=== PATIENT | female | born 1995 | race Two or more races ===

== ENCOUNTER 2022-02-10 05:15 | Observation (INO) | payer BC, OTHER | END 2022-02-10 07:03 | disposition home or self-care (01) | LOC: LDRP 05:15 | PROVIDERS: ADMIT Obstetrics & Gynecology; ATTEND Obstetrics & Gynecology | DX: O36.63X0 Maternal care for excessive fetal growth, third trimester, not applicable or unspecified (principal); Z3A.39 39 weeks gestation of pregnancy | CPT/HCPCS: 59025; 76805; 76818; 81002; 94760; G0378 ==

== ENCOUNTER 2022-02-11 23:35 | Inpatient (IN) | payer BC ==
[~2022-02-11] VITALS: Ht 152.4 cm; Wt 74.4 kg
[2022-02-12] MEDS ORDERED: BUTORPHANOL TARTRATE 2 MG/1 ML VIAL IV PRN ×2 (01:30)
[2022-02-12] MEDS ORDERED: LIDOCAINE 2%HCL (LOCAL ANESTH.) INJ 10ml MDV IJ PRN (01:30)
[2022-02-12] MEDS ORDERED: PROMETHAZINE HCL 25 MG/ML 1ML IV PRN (01:30)
[2022-02-12] MEDS ORDERED: PHISODERM TOP SOLN 240ML BTL TOP PRN (01:30)
[2022-02-12] MEDS ORDERED: DERMOPLAST 60ML BOTTLE TOP PRN (01:30)
[2022-02-12] MEDS ORDERED: PENICILLIN G POT 5MIL/D5 50ML 50 ML IV ONE (01:30)
[2022-02-12] MEDS ORDERED: WITCH HAZEL-GLYCERIN PAD TOP PRN (01:30)
[2022-02-12] MEDS ORDERED: NS/OXYTOCIN 20UNITS 500 ML IV ONE ×2 (01:45→02:15)
[2022-02-12] MEDS ORDERED: METHYLERGONOVINE MALEATE 0.2 MG/ML AMP IM PRN (01:45)
[2022-02-12] MEDS: LACTATED RINGER'S 1,000 ML IV SCH ×3 (01:59→23:33)
[2022-02-12 02:12] LABS: Urine Bacteria NONE SEEN /hpf (None Seen); Urine Blood TRACE /uL (Negative); Urine Specific Gravity 1.003 (1.001-1.035); Urine WBC 5 /hpf (0 - 5)
[2022-02-12 02:14] LABS: Basophils # (auto) 0 10 ^3/uL (0-0.2); Basophils % (auto) 0.2 % (0.0-2.0); Eosinophils # (auto) 0.2 10 ^3/uL (0-0.8); Hematocrit 37.7 % (36.0-46.0); Hemoglobin 12.8 g/dL (12.2-16.2); Lymphocytes # (auto) 1.4 10 ^3/uL (0.4-5.4); Lymphocytes % (auto) 13.3 % (10.0-50.0); Mean Corpuscular Hemoglobin 32.3 pg (28.0-32.0); Mean Corpuscular Hgb Conc. 33.9 g/dL (32.0-36.0); Mean Corpuscular Volume 95.3 fL (80.0-100.0); Monocytes # (auto) 0.8 10 ^3/uL (0-1.3); Monocytes % (auto) 7.9 % (0.0-12.0); Neutrophils # (auto) 7.9 10 ^3/uL (1.6-8.6); Neutrophils % (auto) 76.6 % (37.0-80.0); Nucleated Red Blood Cells % 0.1 %; Red Blood Cells 3.96 10^6/uL (4.0-5.20); White Blood Cell 10.3 10^3/uL (4.4-10.8)
[2022-02-12 02:18] LABS: Alanine Aminotransferase 32 U/L (13-56); Albumin 2.8 g/dL (3.4-5.0); Anion Gap 11 (5-15); Aspartate Aminotransferase 23 U/L (15-37); Blood Urea Nitrogen 6 mg/dL (7-18); Calcium 8.6 mg/dL (8.5-10.1); Carbon Dioxide 19 mmol/L (21-32); Chloride 109 mmol/L (98-107); GFR African American 157 mL/min; GFR Non-African American 129 mL/min; Glucose 101 mg/dL (74-106); Potassium 3.7 mmol/L (3.5-5.1); Sodium 139 mmol/L (136-145)
[2022-02-12 02:20] LABS: Alkaline Phosphatase 227 U/L (45-117); Bilirubin, Total 0.6 mg/dL (0.2-1.0); Total Protein 6.9 g/dL (6.4-8.2)
[2022-02-12 02:22] LABS: Alcohol, Urine < 3.0 mg/dL (0-10); Amphetamine Screen, Urine NEGATIVE (NEGATIVE); Barbiturate Scree,Urine NEGATIVE (NEGATIVE); Benzodiazephine Screen, Urine NEGATIVE (NEGATIVE); Cannabinoid Screen, Urine NEGATIVE (NEGATIVE); Cocaine Screen, Urine NEGATIVE (NEGATIVE); Opiate Scree,Urine NEGATIVE (NEGATIVE); Phencyclidine Screen, Urine NEGATIVE (NEGATIVE)
[2022-02-12 02:42] LABS: INR 0.88 (0.9-1.15); Partial Thromboplastin Time 27.1 sec (24.6-33.4)
[2022-02-12] MEDS ORDERED: STERILE WATER 10 ML ONE (05:55)
[2022-02-12] MEDS ORDERED: PENICILLIN G POT 5MILLION UNIT VIAL ONE (05:55)
[2022-02-12] MEDS: PENICILLIN G POTASSIUM 2,500,000 UNITS in D5W 5% 50 ML IV SCH ×3 (06:07→15:19)
[2022-02-12] MEDS ORDERED: LACTATED RINGER'S 1,000 ML IV ONE (08:15)
[2022-02-12] MEDS ORDERED: ePHEDrine SULFATE 50 MG/ML AMP IV ONE (08:15)
[2022-02-12] MEDS ORDERED: ROPIVACAINE HCL 200 ML EPI SCH (08:15)
[2022-02-12] MEDS ORDERED: NALOXONE HCL 0.4 MG/ML VIAL IV ONE (08:15)
[2022-02-12] MEDS: ceFAZolin 2 GM in D5W 5% 100 ML IV SCH ×2 (10:51→19:00)
[2022-02-12] MEDS ORDERED: LIDOCAINE 1%-Mpf/Epinephrine 1:200,000 IJ ONE (15:15)
[2022-02-12] MEDS ORDERED: TERBUTALINE SULFATE 1 MG/ML 1ML VIAL SC PRN (18:45)
[2022-02-12] MEDS ORDERED: NS/OXYTOCIN 20UNITS 1,000 ML IV SCH (18:45)
[2022-02-12] MEDS ORDERED: ceFAZolin 1GM/50ML 0 ML IV ONE (19:58)
[2022-02-12] MEDS ORDERED: METHYLERGONOVINE MALEATE 0.2 MG/ML AMP IM ONE (22:43)
[2022-02-12] MEDS ORDERED: ACETAMINOPHEN 325 MG TAB PO PRN (23:30)
[2022-02-12] MEDS ORDERED: ONDANSETRON ODT 4 MG TAB PO PRN (23:30)
[2022-02-12 23:37] LABS: Basophils # (auto) 0 10 ^3/uL (0-0.2); Basophils % (auto) 0.1 % (0.0-2.0); Eosinophils # (auto) 0 10 ^3/uL (0-0.8); Hematocrit 27.5 % (36.0-46.0); Hemoglobin 9.4 g/dL (12.2-16.2); Lymphocytes # (auto) 0.9 10 ^3/uL (0.4-5.4); Lymphocytes % (auto) 5.9 % (10.0-50.0); Mean Corpuscular Hemoglobin 32.3 pg (28.0-32.0); Mean Corpuscular Hgb Conc. 34.2 g/dL (32.0-36.0); Mean Corpuscular Volume 94.7 fL (80.0-100.0); Monocytes # (auto) 1.1 10 ^3/uL (0-1.3); Neutrophils # (auto) 13.8 10 ^3/uL (1.6-8.6); Nucleated Red Blood Cells % 0.1 %; Red Blood Cells 2.91 10^6/uL (4.0-5.20); White Blood Cell 15.9 10^3/uL (4.4-10.8)
[2022-02-12] MEDS ORDERED: miSOPROStol 100 mcg TAB ONE (23:41)
[2022-02-12] MEDS ORDERED: miSOPROStol 100 mcg TAB SL PRN (23:45)
[2022-02-12] MEDS ORDERED: miSOPROStol 100 mcg TAB PR PRN (23:45)
[2022-02-13] VITALS (7 sets, daily range): BP systolic 89–100; BP diastolic 52–57
[2022-02-13 00:10] LABS: INR 0.98 (0.9-1.15); Partial Thromboplastin Time 31.1 sec (24.6-33.4)
[2022-02-13] MEDS: IBUPROFEN 600 MG TAB PO PRN ×2 (01:29→19:15)
[2022-02-13] MEDS: ceFAZolin 2 GM in D5W 5% 100 ML IV SCH (02:52)
[2022-02-13] MEDS ORDERED: SODIUM CHLORIDE 0.9% 1,000 ML IV ONE (04:30)
[2022-02-13 07:06] LABS: RPR Non Reactive (Non Reactive)
[2022-02-13 07:49] LABS: Basophils # (auto) 0 10 ^3/uL (0-0.2); Basophils % (auto) 0.2 % (0.0-2.0); Eosinophils # (auto) 0.1 10 ^3/uL (0-0.8); Lymphocytes # (auto) 2.1 10 ^3/uL (0.4-5.4); Monocytes % (auto) 7.2 % (0.0-12.0)
[2022-02-13 07:50] LABS: Eosinophils % (auto) 0.6 % (0.0-7.0); Hemoglobin 8.2 g/dL (12.2-16.2); Lymphocytes % (auto) 15.1 % (10.0-50.0); Mean Corpuscular Hemoglobin 32.3 pg (28.0-32.0); Mean Corpuscular Hgb Conc. 33.9 g/dL (32.0-36.0); Mean Corpuscular Volume 95.1 fL (80.0-100.0); Neutrophils # (auto) 10.7 10 ^3/uL (1.6-8.6); Neutrophils % (auto) 76.9 % (37.0-80.0); Red Blood Cells 2.53 10^6/uL (4.0-5.20); Red Cell Distribution Width 13.4 % (11.8-14.3); White Blood Cell 13.9 10^3/uL (4.4-10.8)
[2022-02-13] MEDS ORDERED: ceFAZolin 2 GM in D5W 5% 100 ML IV ONE (11:00)
[2022-02-13] MEDS ORDERED: DOCUSATE SOD 100 MG CAP PO SCH (22:00)
[2022-02-13] MEDS ORDERED: PREN-96 PO (22:32)
== END 2022-02-13 22:18 | disposition home or self-care (01) | DRG 806 ==
LOC: OBSVTOIN 23:35 → LDRP 23:35
PROVIDERS: ADMIT Obstetrics & Gynecology; ATTEND Obstetrics & Gynecology
PROC: 10E0XZZ Delivery of Products of Conception, External Approach (ICD-10-PCS; principal; 2022-02-12)
PROC: 0HQ9XZZ Repair Perineum Skin, External Approach (ICD-10-PCS; 2022-02-12)
PROC: 3E0R3BZ Introduction of Anesthetic Agent into Spinal Canal, Percutaneous Approach (ICD-10-PCS; 2022-02-12)
PROC: 00HU33Z Insertion of Infusion Device into Spinal Canal, Percutaneous Approach (ICD-10-PCS; 2022-02-12)
DX: O77.0 Labor and delivery complicated by meconium in amniotic fluid (principal); O75.2 Pyrexia during labor, not elsewhere classified; Z37.0 Single live birth; O70.0 First degree perineal laceration during delivery; O99.824 Streptococcus B carrier state complicating childbirth; Z20.822 Contact with and (suspected) exposure to COVID-19; Z3A.39 39 weeks gestation of pregnancy
CPT/HCPCS: 36415; 59025; 62282; 76818; 80053; 80307; 81001; 84112; 85025; 85610; 85730; 86592; 86850; 86900; 86901; 94762; 96360; 96361; 96365; 96366; 96372; G0378; J0690; J2001; J2540; J7060

== ENCOUNTER → 2023-06-21 | Outpatient (CLI) | payer BC ==
[~2023-06-21] MED LIST: PREN-96 PO
== END | disposition home or self-care (01) ==
LOC: LAB 15:17
PROVIDERS: ATTEND Obstetrics & Gynecology
DX: Z34.80 Encounter for supervision of other normal pregnancy, unspecified trimester (principal); Z3A.00 Weeks of gestation of pregnancy not specified
CPT/HCPCS: 86900; 86901

== ENCOUNTER → 2023-08-02 | Outpatient (CLI) | payer BC | END | disposition home or self-care (01) | LOC: LAB 14:58 | PROVIDERS: ATTEND Obstetrics & Gynecology | DX: Z34.80 Encounter for supervision of other normal pregnancy, unspecified trimester (principal); Z3A.00 Weeks of gestation of pregnancy not specified | CPT/HCPCS: 86850; 86900; 86901 ==

== ENCOUNTER 2023-12-28 13:40 | Observation (INO) | payer BC | END 2023-12-28 16:45 | disposition home or self-care (01) | LOC: UNDOADMOB 13:40 → LDRP 13:40 → UNDODISOB 16:45 | PROVIDERS: ADMIT Obstetrics & Gynecology; ATTEND Obstetrics & Gynecology | DX: O36.8130 Decreased fetal movements, third trimester, not applicable or unspecified (principal); Z3A.39 39 weeks gestation of pregnancy | CPT/HCPCS: 59025; 76805; 76818; 81002; G0378 ==

== ENCOUNTER 2023-12-30 13:03 | Observation (INO) | payer BC | END 2023-12-30 14:30 | disposition home or self-care (01) | LOC: LDRP 13:03 | PROVIDERS: ADMIT Obstetrics & Gynecology; ATTEND Obstetrics & Gynecology | DX: O48.0 Post-term pregnancy (principal); Z3A.40 40 weeks gestation of pregnancy | CPT/HCPCS: 59025; 76818; 81002; 94760; G0378 ==

== ENCOUNTER 2024-01-01 03:59 | Inpatient (IN) | payer BC ==
[~2024-01-01] VITALS: Ht 152.4 cm; Wt 82.6 kg
[2024-01-01] MEDS ORDERED: BUTORPHANOL TARTRATE 2 MG/1 ML VIAL IV PRN ×2 (04:15)
[2024-01-01] MEDS ORDERED: LIDOCAINE 2%HCL (LOCAL ANESTH.) INJ 20ML MDV IJ PRN (04:15)
[2024-01-01] MEDS ORDERED: LACTATED RINGER'S 1,000 ML IV SCH (04:15)
[2024-01-01 04:42] LABS: Urine Bacteria None Seen /hpf (None Seen)
[2024-01-01 04:48] LABS: Basophils # (auto) 0 10 ^3/uL (0-0.2); Basophils % (auto) 0.4 % (0.0-2.0); Eosinophils # (auto) 0.4 10 ^3/uL (0-0.8); Eosinophils % (auto) 3.9 % (0.0-7.0); Hematocrit 34.3 % (36.0-46.0); Hemoglobin 11.8 g/dL (12.2-16.2); Lymphocytes # (auto) 2.5 10 ^3/uL (0.4-5.4); Lymphocytes % (auto) 25.6 % (10.0-50.0); Mean Corpuscular Hemoglobin 31.5 pg (28.0-32.0); Mean Corpuscular Hgb Conc. 34.4 g/dL (32.0-36.0); Mean Corpuscular Volume 91.5 fL (80.0-100.0); Monocytes # (auto) 0.7 10 ^3/uL (0-1.3); Neutrophils # (auto) 6.2 10 ^3/uL (1.6-8.6); Neutrophils % (auto) 63.1 % (37.0-80.0); Nucleated Red Blood Cells % 0.1 %; Red Blood Cells 3.75 10^6/uL (4.0-5.20); Red Cell Distribution Width 15.1 % (11.8-14.3); White Blood Cell 9.9 10^3/uL (4.4-10.8)
[2024-01-01 05:00] LABS: Amphetamine Screen, Urine Neg (NEGATIVE); Barbiturate Scree,Urine Neg (NEGATIVE); Benzodiazephine Screen, Urine Neg (NEGATIVE)
[2024-01-01 05:01] LABS: Cannabinoid Screen, Urine Neg (NEGATIVE); Cocaine Screen, Urine Neg (NEGATIVE); Opiate Scree,Urine Neg (NEGATIVE); Phencyclidine Screen, Urine Neg (NEGATIVE)
[2024-01-01 05:02] LABS: Urine Blood Negative /uL (Negative); Urine Clarity Clear (Clear); Urine Color Light-Yellow (Yellow); Urine Mucus FEW (None Seen); Urine Protein, UAD TRACE (Negative); Urine Urobilinogen Normal (Negative); Urine WBC 2 /hpf (0 - 5)
[2024-01-01 05:02] LABS: INR 0.96 (0.9-1.15); Partial Thromboplastin Time 27.3 SEC (24.5-34.5); Prothrombin Time 10.2 sec (9.3-11.8)
[2024-01-01 05:05] LABS: Alanine Aminotransferase 11 U/L (7-40); Albumin 3.6 g/dL (3.2-4.8); Alkaline Phosphatase 184 U/L (46-116); Anion Gap 8 (5-15); Aspartate Aminotransferase 17 U/L (13-40); BUN/Creatinine Ratio 13.2 (10.0-20.0); Bilirubin, Total 0.3 mg/dL (0.2-1.0); Blood Urea Nitrogen 7 mg/dL (9-23); Calcium 9.3 mg/dL (8.7-10.4); Carbon Dioxide 20 mmol/L (20-30); Chloride 107 mmol/L (98-107); Glucose 99 mg/dL (74-106); Potassium 3.7 mmol/L (3.5-5.1); Sodium 135 mmol/L (136-145); Total Protein 6.2 g/dL (5.7-8.2)
[2024-01-01] MEDS ORDERED: TERBUTALINE SULFATE 1 MG/ML 1ML VIAL SC PRN (05:45)
[2024-01-01] MEDS: PHISODERM TOP SOLN 240ML BTL TOP PRN (05:46)
[2024-01-01] MEDS: DERMOPLAST 60ML BOTTLE TOP PRN (05:47)
[2024-01-01] MEDS: WITCH HAZEL-GLYCERIN PAD TOP PRN (06:03)
[2024-01-01] MEDS ORDERED: LACT. RINGERS/OXYTOCIN 20UNITS 500 ML IV ONE (06:15)
[2024-01-01] MEDS: LACT. RINGERS/OXYTOCIN 20UNITS 1,000 ML IV SCH (06:48)
[2024-01-01] MEDS ORDERED: LACTATED RINGER'S 1,000 ML IV ONE (08:45)
[2024-01-01] MEDS ORDERED: ePHEDrine SULFATE 50 MG/ML AMP ONE (09:04)
[2024-01-01] MEDS: ROPIVACAINE HCL 200 ML ONE (09:21)
[2024-01-01] MEDS: ePHEDrine SULFATE 50 MG/ML AMP IV ONE (10:21)
[2024-01-01] MEDS ORDERED: miSOPROStol 100 mcg TAB ONE (13:32)
[2024-01-01] MEDS: METHYLERGONOVINE MALEATE 0.2 MG/ML AMP IM ONE (13:43)
[2024-01-01] MEDS: LACT. RINGERS/OXYTOCIN 20UNITS 500 ML IV ONE (13:44)
[2024-01-01 15:30] VITALS: PULSE 82; RESP 16; O2SAT 99
[2024-01-01] MEDS ORDERED: ONDANSETRON ODT 4 MG TAB PO PRN (17:30)
[2024-01-01 19:00] VITALS: BP 103/64; PULSE 83; RESP 18; TEMP 97.8; O2SAT 98
[2024-01-01] MEDS: IBUPROFEN 600 MG TAB PO PRN (19:21)
[2024-01-01 23:00] VITALS: BP 97/63; PULSE 85; RESP 18; TEMP 98.7; O2SAT 97
[2024-01-02] MEDS ORDERED: IBU600T PO (00:57)
[2024-01-02] MEDS: ACETAMINOPHEN 325 MG TAB PO PRN (01:55)
[2024-01-02 03:00] VITALS: BP 98/56; PULSE 75; RESP 16; TEMP 97.9; O2SAT 98
[2024-01-02 06:42] LABS: Basophils # (auto) 0.1 10 ^3/uL (0-0.2); Basophils % (auto) 0.5 % (0.0-2.0); Eosinophils # (auto) 0.4 10 ^3/uL (0-0.8); Eosinophils % (auto) 3.2 % (0.0-7.0); Hematocrit 32.6 % (36.0-46.0); Hemoglobin 11.2 g/dL (12.2-16.2); Lymphocytes # (auto) 2.9 10 ^3/uL (0.4-5.4); Lymphocytes % (auto) 26.2 % (10.0-50.0); Mean Corpuscular Hemoglobin 31.5 pg (28.0-32.0); Mean Corpuscular Hgb Conc. 34.3 g/dL (32.0-36.0); Monocytes # (auto) 0.7 10 ^3/uL (0-1.3); Monocytes % (auto) 5.8 % (0.0-12.0); Neutrophils # (auto) 7.2 10 ^3/uL (1.6-8.6); Neutrophils % (auto) 64.3 % (37.0-80.0); Nucleated Red Blood Cells % 0.1 %; Red Blood Cells 3.54 10^6/uL (4.0-5.20); Red Cell Distribution Width 15.1 % (11.8-14.3); White Blood Cell 11.2 10^3/uL (4.4-10.8)
[2024-01-02 07:00] VITALS: BP 107/73; PULSE 61; RESP 16; RESP 18; TEMP 98.2; O2SAT 98
[2024-01-02 08:06] LABS: RPR Non Reactive (Non Reactive)
[2024-01-02 11:00] VITALS: BP 103/59; PULSE 81; RESP 18; TEMP 98.2; O2SAT 96
[2024-01-02 14:46] VITALS: BP 104/69; PULSE 74; RESP 18; TEMP 98.6; O2SAT 99
[2024-01-03 18:06] LABS: Treponema pallidum Ab (FTA-Ab) Non Reactive (Non Reactive)
== END 2024-01-02 15:24 | disposition home or self-care (01) | DRG 807 ==
LOC: LDRP 03:59
PROVIDERS: ADMIT Nurse Practitioner Family; ATTEND Nurse Practitioner Family
PROC: 10E0XZZ Delivery of Products of Conception, External Approach (ICD-10-PCS; principal; 2024-01-01)
PROC: 3E033VJ Introduction of Other Hormone into Peripheral Vein, Percutaneous Approach (ICD-10-PCS; 2024-01-01)
PROC: 3E0R3BZ Introduction of Anesthetic Agent into Spinal Canal, Percutaneous Approach (ICD-10-PCS; 2024-01-01)
PROC: 00HU33Z Insertion of Infusion Device into Spinal Canal, Percutaneous Approach (ICD-10-PCS; 2024-01-01)
DX: O48.0 Post-term pregnancy (principal); Z37.0 Single live birth; O62.2 Other uterine inertia; Z3A.40 40 weeks gestation of pregnancy
CPT/HCPCS: 36415; 59025; 59409; 62282; 80053; 80307; 81001; 81002; 85025; 85610; 85730; 86592; 86850; 86900; 86901; 94760; 94762; 96360; 96361; 96365; 96366; 96372; G0378; J2590